=== PATIENT | female | born 1950 | race Caucasian/White ===

== ENCOUNTER → 2024-09-15 13:06 | Outpatient (REF) | payer MEDICARE, SELFPAY | LOC: HWRAD 13:06 | PROVIDERS: ATTENDING PHYSICIAN Internal Medicine Rheumatology; FAMILY PHYSICIAN Internal Medicine | DX: M81.0 Age-related osteoporosis without current pathological fracture (principal); Z13.820 Encounter for screening for osteoporosis; M25.50 Pain in unspecified joint; M54.2 Cervicalgia | CPT/HCPCS: 72052; 72072; 77080 ==